=== PATIENT | female | born 1995 | race Caucasian/White ===

== ENCOUNTER 2019-12-28 09:17 | Emergency (ER) | payer BC, OTHER ==
[~2019-12-28] VITALS: Ht 175.2 cm; Wt 109.0 kg
[2019-12-28 09:38] LABS: BILIRUBIN,URINE NEGATIVE (NEGATIVE); CLARITY,URINE SL CLOUDY; COLOR,URINE YELLOW; GLUCOSE, URINE (UA) NEGATIVE (NEGATIVE); KETONES,URINE TRACE (NEGATIVE); LEUKOCYTE ESTERASE ,URINE NEGATIVE (NEGATIVE); NITRITE,URINE NEGATIVE (NEGATIVE); PROTEIN,URINE 1+ (NEGATIVE)
[2019-12-28 09:45] LABS: BACTERIA,URINE TRACE /HPF
--- NOTE | 2019-12-28 09:54 | ED GU-Female ---
General Chief Complaint: Female Reproductive Stated Complaint: PELVIC PAIN Source: patient Exam Limitations: no limitations History of Present Illness Date Seen by Provider: Dec 28, 2019 Time Seen by Provider: 09:25 Initial Comments Patient presents ER by private conveyance with chief complaint 3-4 days of suprapubic pelvic pain without discharge or malodor or dysuria. No hematuria. She started her period 3 days ago. Her periods are regular usually last 1 week. Last vaginal intercourse was about a month ago. No dyspareunia. She has called [address] Grant's office and could not get an appointment. She says Advil takes the pain away and she did take 5 tablets about half an hour prior to coming so her pain is now 0 out of 10. Concerned about the pain persisting. She has not taken a test. She is not having fever chills cough shortness of breath nausea vomiting diarrhea. No history of abdominal surgeries. . She noticed last week that the threads of her ParaGard IUD became more prominent and now she's having pain in that general vicinity. Allergies and Home Medications Allergies Coded Allergies: No Known Allergies (Unverified Allergy, Mild, 05/12/09) Home Medications Doxycycline Hyclate 100 Mg Tablet, 100 MG PO BID Prescribed by: VIJI VEGA on 12/28/19 1134 Hydrocodone/Acetaminophen 1 Each Tablet, 1 EACH PO Q6H PRN for PAIN-BREAKTHROUGH Prescribed by: VIJI VEGA on 12/28/19 1134 Patient Home Medication List Home Medication List Reviewed: Yes Review of Systems Review of Systems Constitutional: No chills, No fever, No malaise EENTM: No ear discharge, No ear pain Respiratory: No cough, No short of breath Cardiovascular: No chest pain, No Hx of Intervention Gastrointestinal: No abdominal pain, No nausea, No vomiting Genitourinary: see HPI; denies burning, denies discharge, denies dysuria : No All Other Systemes Reviewed Negative Unless Noted: Yes Past Bomkfjf-Tyvdcm-Xgdbes Hx Patient Social History Alcohol Use: Occasionally Uses Recreational Drug Use: No Recent Foreign Travel: No Contact w/Someone Who Travel: No Physical Exam Vital Signs Vital Signs - First Documented 12/28/19 09:20 Temp 36.7 Pulse 107 Resp 20 B/P (MAP) 138/80 (99) Pulse Ox 98 O2 Delivery Room Air Capillary Refill : Height, Weight, BMI Height: '" Weight: lbs. oz. kg; BMI Method: General Appearance: WD/WN, mild distress HEENT: PERRL/EOMI, pharynx normal Neck: full range of motion, normal inspection Cardiovascular: normal peripheral pulses, regular rate, rhythm Respiratory: no respiratory distress, no accessory muscle use Gastrointestinal: normal bowel sounds, soft, tenderness (suprapubic), other (negative for psoas sign or Rovsing sign) Extremities: normal range of motion, non-tender, normal capillary refill Neurologic/Psychiatric: alert, normal mood/affect, oriented x 3 Skin: normal color, warm/dry Progress/Results/Core Measures Suspected Sepsis SIRS Temperature: Pulse: Respiratory Rate: Laboratory Tests 12/28/19 09:40: White Blood Count 17.0H Blood Pressure / Mean: Laboratory Tests 12/28/19 09:40: Creatinine 0.68, Platelet Count 342, Total Bilirubin 0.4 Results/Orders Lab Results Laboratory Tests Test 12/28/19 09:30 12/28/19 09:40 12/28/19 11:20 Range/Units Urine Color YELLOW Urine Clarity SL CLOUDY Urine pH 6.0 5-9 Urine Specific [place] 1.025 H 1.016-1.022 Urine Protein 1+ H NEGATIVE Urine Glucose (UA) NEGATIVE NEGATIVE Urine Ketones TRACE H NEGATIVE Urine Nitrite NEGATIVE NEGATIVE Urine Bilirubin NEGATIVE NEGATIVE Urine Urobilinogen 0.2 < = 1.0 MG/DL Urine Leukocyte Esterase NEGATIVE NEGATIVE Urine RBC (Auto) 3+ H NEGATIVE Urine RBC 5-10 H /HPF Urine WBC NONE /HPF Urine Squamous Epithelial Cells 10-25 H /HPF Urine Crystals NONE /LPF Urine Bacteria TRACE /HPF Urine Casts NONE /LPF Urine Mucus NEGATIVE /LPF Urine Culture Indicated NO Urine Test NEGATIVE NEGATIVE White Blood Count 17.0 H 4.3-11.0 10^3/uL Red Blood Count 3.89 L 4.35-5.85 10^6/uL Hemoglobin 11.8 11.5-16.0 G/DL Hematocrit 35 35-52 % Mean Corpuscular Volume 89 80-99 FL Mean Corpuscular Hemoglobin 30 25-34 PG Mean Corpuscular Hemoglobin Concent 34 32-36 G/DL Red Cell Distribution Width 13.6 10.0-14.5 % Platelet Count 342 130-400 10^3/uL Mean Platelet Volume 8.3 7.4-10.4 FL Neutrophils (%) (Auto) 81 H 42-75 % Lymphocytes (%) (Auto) 13 12-44 % Monocytes (%) (Auto) 5 0-12 % Eosinophils (%) (Auto) 1 0-10 % Basophils (%) (Auto) 0 0-10 % Neutrophils # (Auto) 13.7 H 1.8-7.8 X 10^3 Lymphocytes # (Auto) 2.2 1.0-4.0 X 10^3 Monocytes # (Auto) 0.9 0.0-1.0 X 10^3 Eosinophils # (Auto) 0.2 0.0-0.3 10^3/uL Basophils # (Auto) 0.0 0.0-0.1 10^3/uL Neutrophils % (Manual) 71 % Lymphocytes % (Manual) 19 % Monocytes % (Manual) 6 % Eosinophils % (Manual) 1 % Band Neutrophils 3 % Blood Morphology Comment NORMAL Sodium Level 138 135-145 MMOL/L Potassium Level 4.0 3.6-5.0 MMOL/L Chloride Level 110 H 98-107 MMOL/L Carbon Dioxide Level 19 L 21-32 MMOL/L Anion Gap 9 5-14 MMOL/L Blood Urea Nitrogen 11 7-18 MG/DL Creatinine 0.68 0.60-1.30 MG/DL Estimat Glomerular Filtration Rate > 60 BUN/Creatinine Ratio 16 Glucose Level 125 H 70-105 MG/DL Calcium Level 8.5 8.5-10.1 MG/DL Corrected Calcium 8.8 8.5-10.1 MG/DL Total Bilirubin 0.4 0.1-1.0 MG/DL Aspartate Amino Transf (AST/SGOT) 16 5-34 U/L Alanine Aminotransferase (ALT/SGPT) 24 0-55 U/L Alkaline Phosphatase 75 40-136 U/L Total Protein 6.5 6.4-8.2 GM/DL Albumin 3.6 3.2-4.5 GM/DL Micro Results Microbiology 12/28/19 Wet Prep - Final, Complete My Orders Orders - VIJI VEGA Ua Culture If Indicated (12/28/19 09:19) Urine Bedside (12/28/19 09:19) Hcg,Qualitative Urine (12/28/19 09:43) Cbc With Automated Diff (12/28/19 09:50) Comprehensive Metabolic Panel (12/28/19 09:50) Wet Prep (12/28/19 09:50) Manual Differential (12/28/19 09:40) Neisseria Gonorrhea Swab (12/28/19 11:06) Chlam Dna Probe (12/28/19 11:06) Acetaminophen Tablet/Caplet (Tylenol T (12/28/19 11:45) Vital Signs/I&O 12/28/19 09:20 Temp 36.7 Pulse 107 Resp 20 B/P (MAP) 138/80 (99) Pulse Ox 98 O2 Delivery Room Air Capillary Refill : Progress Note #1: Time: 11:31 Progress Note Wet prep pending. Appears to be pelvic inflammatory disease. We'll give her Rocephin and azithromycin put her out on doxycycline. Hydrocodone for pain. Plan to follow up with Dr. Grant. Progress Note #2: Time: 11:37 Progress Note Clarified with Brennon wiggins and there are no yeast seen on wet prep. Negative for trichomonas or clue cells. Plan to give her antibiotics and set her up. Departure Impression Primary Impression: Pelvic inflammatory disease Disposition: HOME, SELF-CARE Condition: Stable Departure-Patient Inst. Decision time for Depature: 11:32 Referrals: SMILEY GRANT MD (PCP) Primary Care Physician Patient Instructions: Pelvic Inflammatory Disease (DC) Add. Discharge Instructions: I have put you on antibiotics for what I suspect is an infection. If you're not seeing improvement in 3-4 days and continuing to have severe pain then please follow-up sooner with Dr. Grant. Otherwise plan to follow up with your hvac r tech in 1-2 weeks after completing the antibiotics. If you have new or worrisome symptoms return to the ER sooner. Tylenol 1000 mg every 8 hours as necessary for pain. Ibuprofen 800 mg every 8 hours as necessary for pain. Hydrocodone one tablet every 6 hours as necessary for breakthrough pain. All discharge instructions reviewed with patient and/or family. Voiced understanding. Scripts Doxycycline Hyclate (Doxycycline Hyclate) 100 Mg Tablet 100 MG PO BID for 10 Days, #20 TAB 0 Refills Prov: VIIJ VEGA 12/28/19 Hydrocodone/Acetaminophen (Hydrocodone-Acetamin 5-325 mg) 1 Each Tablet 1 EACH PO Q6H PRN for PAIN-BREAKTHROUGH, #10 TAB 0 Refills Prov: VIJI VEGA 12/28/19 VIJI VEGA Dec 28, 2019 09:54
[2019-12-28 09:58] LABS: BASOPHILS % (AUTO) 0 % (0-10); EOSINOPHILS # (AUTO) 0.2 10^3/uL (0.0-0.3); EOSINOPHILS % (AUTO) 1 % (0-10); HEMATOCRIT 35 % (35-52); HEMOGLOBIN 11.8 G/DL (11.5-16.0); LYMPHOCYTES # (AUTO) 2.2 X 10^3 (1.0-4.0); LYMPHOCYTES % (AUTO) 13 % (12-44); MEAN CORPUSCULAR HEMOGLOBIN 30 PG (25-34); MEAN CORPUSCULAR HGB CONC 34 G/DL (32-36); MEAN CORPUSCULAR VOLUME 89 FL (80-99); MEAN PLATELET VOLUME 8.3 FL (7.4-10.4); MONOCYTES # (AUTO) 0.9 X 10^3 (0.0-1.0); MONOCYTES % (AUTO) 5 % (0-12); NEUTROPHILS # (AUTO) 13.7 X 10^3 (1.8-7.8); NEUTROPHILS % (AUTO) 81 % (42-75); PLATELET COUNT 342 10^3/uL (130-400); RED CELL DISTRIBUTION WIDTH 13.6 % (10.0-14.5)
[2019-12-28 10:07] LABS: ALBUMIN 3.6 GM/DL (3.2-4.5)
[2019-12-28 10:08] LABS: CHLORIDE 110 MMOL/L (98-107); SODIUM 138 MMOL/L (135-145)
[2019-12-28 10:09] LABS: CALCIUM 8.5 MG/DL (8.5-10.1)
[2019-12-28 10:10] LABS: GLUCOSE 125 MG/DL (70-105); TOTAL PROTEIN 6.5 GM/DL (6.4-8.2)
[2019-12-28 10:11] LABS: CARBON DIOXIDE 19 MMOL/L (21-32)
[2019-12-28 10:12] LABS: BILIRUBIN,TOTAL 0.4 MG/DL (0.1-1.0)
[2019-12-28 10:13] LABS: ALKALINE PHOSPHATASE 75 U/L (40-136)
[2019-12-28 10:14] LABS: CREATININE SERUM 0.68 MG/DL (0.60-1.30); GFR ESTIMATED > 60
[2019-12-28 10:15] LABS: BUN/CREATININE RATIO 16
[2019-12-28 10:16] LABS: ALANINE AMINOTRANSFERASE 24 U/L (0-55)
[2019-12-28 10:20] LABS: BAND NEUTROPHILS 3 %; EOSINOPHILS % (MANUAL) 1 %; LYMPHOCYTES % (MANUAL) 19 %; MONOCYTES % (MANUAL) 6 %; NEUTROPHILS % (MANUAL) 71 %; RBC MORPH NORMAL
--- OUTSIDE RECORDS SUMMARY | 2019-12-28 10:35 | XMS REPORT | Continuity of Care Document ---
Demographics Preferred Language Unknown Marital Status Unknown Mormonism Affiliation Unknown Race Unknown Ethnic Group Unknown Author Organization Unknown Address Unknown Phone Unavailable Allergies There is no data. Medications There is no data. Problems There is no data. Procedures There is no data. Results Test Result Range Complete urinalysis with reflex to cultu re - 12/28/19 09:30 Urine color determination YELLOW NRG Urine clarity determination SL CLOUDY N RG Urine pH measurement by test strip 6.0 5-9 Specific gravity of urine by test strip 1.025 1.016-1.022 Urine protein assay by test strip, semi-quantitative 1+ NEGATIVE Urine glucose detection by automated test strip NE GATIVE NEGATIVE Erythrocytes detection in urine sediment by light micr oscopy 3+ NEGATIVE Urine ketones detection by automated test strip TR EMIL NEGATIVE Urine nitrite detection by test strip NEGATIVE NEGATIVE Urine total bilirubin detection by test strip NEGA TIVE NEGATIVE Urine urobilinogen measurement by automated test strip (mass/volume) 0.2 mg/dL < = 1.0 Urine leukocyte esterase detection by dipstick NEG ATIVE NEGATIVE Automated urine sediment erythrocyte cou nt by microscopy (number/high power field) [HPF] NRG Automated urine sediment leukocyte count by microscopy (number/high power field) NONE NRG Bacteria detection in urine sediment by light microsco py TRACE NRG Squamous epithelial cells detection in u rine sediment by light microscopy 10-25 NRG Crystals detection in urine sediment by light microsco py NONE NRG Casts detection in urine sediment by light microscopy NONE NRG Mucus detection in urine sediment by light microscopy NEGATIVE NRG Complete urinalysis with reflex to culture NO NRG Urine beta human chorionic gonadotropin (hCG) measurement - 12/28/19 09:30 Urine beta human chorionic gonadotropin (hCG) measurem ent NEGATIVE NEGATIVE Comprehensive metabolic panel - 12/28/19 09:40 Serum or plasma sodium measurement (moles/volume) 138 mmol/L 135-145 Serum or plasma potassium measurement (moles/volume) 4.0 mmol/L 3.6-5.0 Serum or plasma chloride measurement (moles/volume) 110 mmol/L 98-107 Carbon dioxide 19 mmol/L 21-32 Serum or plasma anion gap determination (moles/volume) 9 mmol/L 5-14 Serum or plasma urea nitrogen measurement (mass/volume ) 11 mg/dL 7-18 Serum or plasma creatinine measurement (mass/volume) 0.68 mg/dL 0.60-1.30 Serum or plasma urea nitrogen/creatinine mass ratio 16 NRG Serum or plasma creatinine measurement w ith calculation of estimated glomerular filtration rate > NRG Serum or plasma glucose measurement (mass/volume) 125 mg/dL 70-105 Serum or plasma calcium measurement (mass/volume) 8.5 mg/dL 8.5-10.1 Serum or plasma total bilirubin measurement (mass/volu me) 0.4 mg/dL 0.1-1.0 Serum or plasma alkaline phosphatase bety surement (enzymatic activity/volume) 75 U/L 40-136 Serum or plasma aspartate aminotransfera se measurement (enzymatic activity/volume) 16 U/L 5-34 Serum or plasma alanine aminotransferase measurement (enzymatic activity/volume) 24 U/L 0-55 Serum or plasma protein measurement (mass/volume) 6.5 g/dL 6.4-8.2 Serum or plasma albumin measurement (mass/volume) 3.6 g/dL 3.2-4.5 CALCIUM CORRECTED 8.8 mg/dL 8.5-10.1 Complete blood count (CBC) with automate d white blood cell (WBC) differential - 12/28/19 09:40 Blood leukocytes automated count (number/volume) 17.0 10*3/uL 4.3-11.0 Blood erythrocytes automated count (number/volume) 3.89 10*6/uL 4.35-5.85 Venous blood hemoglobin measurement (mass/volume) 11.8 g/dL 11.5-16.0 Blood hematocrit (volume fraction) 35 % 35-52 Automated erythrocyte mean corpuscular volume 89 [ foz_us] 80-99 Automated erythrocyte mean corpuscular h emoglobin (mass per erythrocyte) 30 pg 25-34 Automated erythrocyte mean corpuscular h emoglobin concentration measurement (mass/volume) 34 g/dL 32-36 Automated erythrocyte distribution width ratio 13. 6 % 10.0- 14.5 Automated blood platelet count (count/volume) 342 10*3/uL 130-400 Automated blood platelet mean volume measurement 8.3 [foz_us] 7.4-10.4 Automated blood neutrophils/100 leukocytes 81 % 42-75 Automated blood lymphocytes/100 leukocytes 13 % 12-44 Blood monocytes/100 leukocytes 5 % 0-12 Automated blood eosinophils/100 leukocytes 1 % 0-10 Automated blood basophils/100 leukocytes 0 % 0-10 Blood neutrophils automated count (number/volume) 13.7 10*3 1.8-7.8 Blood lymphocytes automated count (number/volume) 2.2 10*3 1.0-4.0 Blood monocytes automated count (number/volume) 0. 9 10*3 0.0-1.0 Automated eosinophil count 0.2 10*3/uL 0 .0-0.3 Automated blood basophil count (count/volume) 0.0 10*3/uL 0.0-0.1 Manual absolute plasma cell count - 12/11 12/30 09:40 Blood monocytes/100 leukocytes 6 % NRG Manual blood segmented neutrophils/100 leukocytes 71 % NRG Blood band neutrophils/100 leukocytes 3 % NRG Manual blood lymphocytes/100 leukocytes 19 % NRG Manual eosinophils/100 leukocytes in nose 1 % NRG Blood erythrocyte morphology finding identification NORMAL NRG Encounters ACCT No. Visit Date/Time Discharge Status Pt. Type Provider Facility Loc./Unit Complaint [id number] 12/28/2019 09:45:00 Document Registration
--- NOTE | 2019-12-28 11:25 | NUR ---
PELVIC EXAM DONE BY DR VEGA, PT TOLERATED WELL.
[2019-12-28] MEDS ORDERED: HYDR-83 PO (11:34)
[2019-12-28] MEDS ORDERED: DOXY100T2 PO (11:34)
[2019-12-28] MEDS ORDERED: ACETAMINOPHEN 325 MG TABLET ONE (11:35)
[2019-12-28] MEDS ORDERED: cefTRIAXone FOR IV USE 1,000 MG in WATER (STERILE) FOR INJECTION 10 ML IV ONE (11:45)
[2019-12-28] MEDS ORDERED: AZITHROMYCIN 250 MG TAB (ZITHROMAX) PO ONE (11:45)
[2019-12-28] MEDS ORDERED: ACETAMINOPHEN 325 MG TABLET PO ONE (11:45)
[2019-12-28 12:01] VITALS: BP 124/78
== END 2019-12-28 11:58 | disposition home or self-care (01) ==
LOC: EDUNIT# 09:17 → ER 09:18
DX: N73.9 Female pelvic inflammatory disease, unspecified (principal)
CPT/HCPCS: 36415; 80053; 81000; 84703; 85007; 85027; 87210; 87491; 87591